=== PATIENT | female | born 2000 ===

== ENCOUNTER 2022-02-15 19:28 | Emergency (ER) | payer OTHER ==
[~2022-02-15] VITALS: Ht 152.4 cm; Wt 63.5 kg
[2022-02-15 19:32] VITALS: BP 124/58
--- NOTE | 2022-02-15 19:42 | NUR ---
TO LOBBY FOLLOWING TRIAGE, UA OBTAINED
[2022-02-15] MEDS ORDERED: DOXY-690 PO (20:45)
[2022-02-15] MEDS ORDERED: cefTRIAXone 500 MG in LIDOCAINE MPF 1% 1 ML IM ONE (20:45)
[2022-02-15 22:09] LABS: APPEARANCE,URINE CLEAR (CLEAR); BILIRUBIN,URINE NEGATIVE (NEGATIVE); BLOOD, URINE 3+ (NEGATIVE); COLOR,URINE YELLOW (YELLOW); LEUKOCYTE ESTERASE ,URINE 1+ (NEGATIVE); NITRITE, URINE NEGATIVE (NEGATIVE); UGLUCOSE NEGATIVE (NEGATIVE)
[2022-02-15 22:39] LABS: RBC,URINE >100 /HPF (0-5); WBC,URINE >25 (MANY) /HPF (0-5)
[2022-02-15 22:40] LABS: YEAST,URINE Rare /HPF (None Seen)
[2022-02-15] MEDS ORDERED: cefTRIAXone 500 MG VIAL ONE (23:08)
[2022-02-15] MEDS ORDERED: LIDOCAINE MPF 1% 5 ML ONE (23:09)
[2022-02-15] MEDS ORDERED: CEPH-588 PO (23:31)
[2022-02-16 00:05] VITALS: BP 124/58
--- NOTE | 2022-02-16 00:05 | NUR ---
Patient discharged with v/s stable. Written and verbal after care instructions given and explained. Patient alert, oriented and verbalized understanding of instructions. Ambulatory with steady gait. All questions addressed prior to discharge. ID band removed. Patient advised to follow up with PMD. Rx of KEFLEX, AND VIBRAMYCIN given. Patient educated on indication of medication including possible reaction and side effects. Opportunity to ask questions provided and answered.
== END 2022-02-16 00:05 | disposition home or self-care (01) ==
LOC: MED 19:28
DX: R31.9 Hematuria, unspecified (principal)
CPT/HCPCS: 81001; 87086; 87491; 96372; 99283; J0696; J2001